=== PATIENT | female | born 1960 | race Caucasian/White ===

== ENCOUNTER → 2017-07-05 | Day surgery (SDC) | payer OTHER ==
[~2017-07-05] VITALS: Ht 160 cm; Wt 58.3 kg
[~2017-07-05] MED LIST: BUPIVACAINE HCL PF 0.5% 30 ML VIAL ONE; CHLORHEXIDINE GLUCONATE 2 % 1 PACK (2 CLOTHS) TOPICAL PRN; DO NOT ADM ANY ANTICOAGULANT DRUGS PRN; HEPARIN SODIUM - IV 10,000 UNITS/10 ML VIAL ONE; HEPARIN-NS/PF INJ 500 ML ONE; IBUP1TAB7 PO; IOHEXOL 300 INJ 50 ML IV ONE; LACTATED RINGER'S 1000 ML IV PRN; METOPROLOL TARTRATE 25 MG TAB PO PRN; MIDAZOLAM HCL 2 MG/2 ML VIAL ONE; POVIDONE IODINE 5% (ANTISEPSIS KIT) 4 APPLICATIONS EACH NARE PRN; PROTAMINE SULFATE 50 MG/5 ML VIAL ONE; SODIUM CHLORID 0.9% 500 ML IV PRN; ceFAZolin INJ 1,000 MG VIAL ONE
[2017-07-05 13:00] LABS: AUTOMATED NEUTROPHIL # 2.5 TH/MM3 (1.8-7.7); BASOPHIL # 0.1 TH/MM3 (0-0.2); BASOPHIL % 1.3 % (0.0-2.0); EOSINOPHIL # 0.2 TH/MM3 (0-0.4); EOSINOPHIL % 3.1 % (0.0-4.0); HEMATOCRIT 41.9 % (35.0-46.0); HEMOGLOBIN 14.8 GM/DL (11.6-15.3); LYMPH % 48.2 % (9.0-44.0); LYMPHOCYTE # 3.4 TH/MM3 (1.0-4.8); MEAN CELL VOLUME 94.1 FL (80.0-100.0); MEAN CORPUSCULAR HEMOGLOBIN 33.2 PG (27.0-34.0); MEAN CORPUSCULAR HGB CONC 35.3 % (32.0-36.0); MEAN PLATELET VOLUME 8.6 FL (7.0-11.0); MONOCYTE # 0.8 TH/MM3 (0-0.9); NEUT % 36.4 % (16.0-70.0); PLATELET COUNT 163 TH/MM3 (150-450); RED BLOOD COUNT 4.45 MIL/MM3 (4.00-5.30)
[2017-07-05 13:22] LABS: BICARBONATE 24.7 MEQ/L (21.0-32.0); CALCIUM 9.2 MG/DL (8.5-10.1); CREATININE 0.66 MG/DL (0.50-1.00)
--- NOTE | 2017-07-05 14:28 | HHI.HP ---
History of Present Illness Chief Complaint: L LE claudication History of Present Illness 56 yo female with L LE claudication. No rest pain and no tissue loss. Past/Family/Social History Past Medical History ITP PAD HCV Past Surgical History splenectomy Social History former smoker Family History NC Home Medications Reported Medications Ibuprofen (Ibuprofen) 800 Mg Tab, 800 MG PO TID Y for pain, TAB 0 Refills 07/02/17 Coded Allergies: No Known Allergies (Verified Allergy, Unknown, 07/05/17) Review of Systems Constitutional: DENIES: Weight loss Cardiovascular: DENIES: Chest pain, Palpitations, Syncope, Dyspnea on Exertion , PND, Lower Extremity Edema, Orthopnea, Claudication Physical Exam Vitals/I&O Date Time Temp Pulse Resp B/P (MAP) Pulse Ox O2 Delivery O2 Flow Rate FiO2 07/05/17 12:15 98.3 70 20 136/69 (91) 97 Neuro: alert, oriented HEENT: NC/AT Neck: no JVD Heart: reg rate Lungs: clear Vascular: no L groin rashes nonpalpable pulses Laboratory Tests Test 07/05/17 12:43 White Blood Count 7.0 Red Blood Count 4.45 Hemoglobin 14.8 Hematocrit 41.9 Mean Corpuscular Volume 94.1 Mean Corpuscular Hemoglobin 33.2 Mean Corpuscular Hemoglobin Concent 35.3 Red Cell Distribution Width 14.0 Platelet Count 163 Mean Platelet Volume 8.6 Neutrophils (%) (Auto) 36.4 Lymphocytes (%) (Auto) 48.2 Monocytes (%) (Auto) 11.0 Eosinophils (%) (Auto) 3.1 Basophils (%) (Auto) 1.3 Neutrophils # (Auto) 2.5 Lymphocytes # (Auto) 3.4 Monocytes # (Auto) 0.8 Eosinophils # (Auto) 0.2 Basophils # (Auto) 0.1 CBC Comment DIFF FINAL Differential Comment Prothrombin Time 10.0 Prothromb Time International Ratio 1.0 Blood Urea Nitrogen 15 Creatinine 0.66 Random Glucose 85 Calcium Level 9.2 Sodium Level 141 Potassium Level 3.8 Chloride Level 108 Carbon Dioxide Level 24.7 Anion Gap 8 Estimat Glomerular Filtration Rate 92 CTA (CALVILLO) reviewed Caprini VTE Risk Assessment Caprini VTE Risk Assessment: No/Low Risk (score <= 1) Caprini Risk Assessment Model Point Value = 1 Point Value = 2 Point Value = 3 Point Value = 5 Age 41-60 Minor surgery BMI > 25 kg/m2 Swollen legs Varicose veins or History of unexplained or recurrent spontaneous Oral contraceptives or hormone replacement Sepsis (< 1 month) Serious lung disease, including pneumonia (< 1 month) Abnormal pulmonary function Acute myocardial infarction Congestive heart failure (< 1 month) History of inflammatory bowel disease Medical patient at bed rest Age 61-74 Arthroscopic surgery Major open surgery (> 45 min) Laparoscopic surgery (> 45 min) Malignancy Confined to bed (> 72 hours) Immobilizing plaster cast Central venous access Age >= 75 History of VTE Family history of VTE Factor V Leiden Prothrombin [id number] Lupus anticoagulant Anticardiolipin antibodies Elevated serum homocysteine Heparin-induced thrombocytopenia Other congenital or acquired thrombophilia Stroke (< 1 month) Elective arthroplasty Hip, pelvis, or leg fracture Acute spinal cord injury (< 1 month) Prophylaxis Regimen Total Risk Factor Score Risk Level Prophylaxis Regimen 0-1 Low Early ambulation 2 Moderate Order ONE of the following: *Sequential Compression Device (SCD) *Heparin 5000 units SQ BID 3-4 Higher Order ONE of the following medications: *Heparin 5000 units SQ TID *Enoxaparin/Lovenox 40 mg SQ daily (WT < 150 kg, CrCl > 30 mL/min) *Enoxaparin/Lovenox 30 mg SQ daily (WT < 150 kg, CrCl > 10-29 mL/min) *Enoxaparin/Lovenox 30 mg SQ BID (WT < 150 kg, CrCl > 30 mL/min) AND/OR *Sequential Compression Device (SCD) 5 or more Highest Order ONE of the following medications: *Heparin 5000 units SQ TID (Preferred with Epidurals) *Enoxaparin/Lovenox 40 mg SQ daily (WT < 150 kg, CrCl > 30 mL/min) *Enoxaparin/Lovenox 30 mg SQ daily (WT < 150 kg, CrCl > 10-29 mL/min) *Enoxaparin/Lovenox 30 mg SQ BID (WT < 150 kg, CrCl > 30 mL/min) AND *Sequential Compression Device (SCD) Assessment and Plan Plan iliac angiogram and intervention Discharge Planning friend: [phone] Farhat Becker MD Jul 05, 2017 14:28
--- NOTE | 2017-07-05 15:23 | HHI.PR ---
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
[2017-07-05 18:30] VITALS: BP 130/72; PULSE 62; RESP 16; TEMP 97.9; O2SAT 97
--- NOTE | 2017-07-06 06:46 | MP ---
cc: Farhat Becker MD DATE OF OPERATION: 07/05/2017 PREOPERATIVE DIAGNOSIS: Peripheral arterial occlusive disease, left lower extremity claudication. POSTOPERATIVE DIAGNOSIS: Peripheral arterial occlusive disease, left lower extremity claudication. PROCEDURE: 1. Ultrasound-guided access to the left common femoral artery. 2. Aortogram. 3. Left common iliac artery angioplasty. 4. Left common femoral artery Angio-Seal. ATTENDING SURGEON: Farhat Becker MD ANESTHESIA: Local with sedation. INDICATIONS FOR PROCEDURE: Ms. Block is a 56-year-old female with left lower extremity claudication and inflow disease by physical examination. She was taken to the operating room for further evaluation and treatment. There is no prior catheterized imaging available for my review. Intraoperatively it was found she had a common iliac artery stenosis that was successfully treated with an angioplasty. DESCRIPTION OF PROCEDURE: Informed consent was obtained from the patient. She was taken to the operating room and placed supine on the operating room table and an appropriate time-out was taken to ensure the patient's identity, operative site and planned procedure. The administration of 2 grams of Ancef was initiated prior to the skin incision and will be discontinued after a single preoperative dose. Everyone in the room agreed with the time-out and we proceeded. Her bilateral groins were prepped and draped and the left groin was anesthetized with 1 percent lidocaine. Using ultrasonographic guidance, the left common femoral artery was accessed with a 21-gauge micropuncture needle and was exchanged using Seldinger technique for the micropuncture sheath through which a 0.035 Glidewire was introduced and the micropuncture sheath was changed for a 5-Swedish sheath. A VCF catheter was placed over the wire and through the sheath and an aortogram was obtained. The patient was systemically heparinized with 3000 units of IV heparin. A Glidewire was introduced. The VCF catheter was removed. The 5-Swedish sheath was removed. The 6-Swedish sheath was introduced and a 6 x 20 balloon was used to angioplasty the common iliac artery stenosis. Completion angiogram showed an excellent result without any recoil extravasation. The wire, catheter and sheath were removed and the groin was closed with an Angio-Seal. There were no complications. I was present, scrubbed and performed the entire procedure. MD ALETHEA Arrington/DL , 04:55 AM , 06:45 AM
--- NOTE | 2017-07-06 14:40 | EKG ---
Date Performed: 07/05/2017 Time Performed: 12:20:32 PTAGE: 56 years EKG: Sinus rhythm LOW QRS VOLTAGE IN PRECORDIAL LEADS BORDERLINE ECG NO PREVIOUS TRACING DOCTOR: Dante Masters Interpretating Date/Time 07/06/2017 14:37:39
== END | disposition home or self-care (01) ==
LOC: HCVO 11:46
PROVIDERS: ATTEND Surgery
DX: I73.9 Peripheral vascular disease, unspecified (principal); I74.9 Embolism and thrombosis of unspecified artery; Z87.891 Personal history of nicotine dependence; Z01.810 Encounter for preprocedural cardiovascular examination
CPT/HCPCS: 00880; 37221; 75625; 80048; 85025; 85610; 93005; C1725; C1769; J0690; J1644; J2250; J2720; J3010; J7120; Q9967